=== PATIENT | male | born 1965 | race African-American/Black ===

== ENCOUNTER 2017-04-10 23:34 | Emergency (ER) | payer OTHER ==
[~2017-04-10] VITALS: Ht 170.2 cm; Wt 64.0 kg
[~2017-04-10 23:34] MED LIST: BACTROBAN22 G1 TOPIC; CLINDAMYCIN HC300 MG ORAL; DAPSONE MC; DAPSONE100 MG ORAL; FLUCONAZOLE200 MG ORAL; INTELENCE100 MG ORAL; ISENTRESS25 MG ORAL; ISENTRESS400 MG ORAL; LAMIVUDINE-ZID1 EACH PO; NORVIR100 MG ORAL; OXYCODON-ACETA1 EACH ORAL; OXYCONTIN10 MG ORAL; VIREAD PO; VIREAD300 MG ORAL
[2017-04-10 23:55] VITALS: BP 129/86
[2017-04-10] MEDS ORDERED: AMOXICILLIN500 MG ORAL (23:57)
[2017-04-10] MEDS ORDERED: PREDNISONE20 MG ORAL (23:57)
[2017-04-10] MEDS ORDERED: ALBUTEROL SULF8.5 GM INH (23:57)
[2017-04-11 00:06] VITALS: BP 129/86
--- NOTE | 2017-04-11 00:30 | Emergency Room Report ---
History of Present Illness General Chief Complaint: Upper Respiratory Illness Source: Patient Present Illness HPI 52-year-old male presents ED for evaluation of cough and fever. Started on Wednesday. Patient is afebrile in triage. States cough is productive with greenish phlegm. Denies chest pain or shortness of breath. Notes history of HIV. States he is compliant with his medications. States his CD4 count is high. Denies sick contacts or recent travel. No other aggravating relieving factors. Denies any other associated symptoms Allergies: Coded Allergies: SULFA (SULFONAMIDE ANTIBIOTICS) (Verified Adverse Reaction, Unknown, Itching, 05/10/13) per patient Patient History Past Medical History: asthma, HIV Past Surgical History: none Pertinent Family History: none Social History: Denies: smoking, alcohol use, drug use Immunizations: UTD Reviewed Nursing Documentation: PMH: Agreed, PSxH: Agreed Nursing Documentation-PMH Past Medical History: No History, Except For Hx Cardiac Problems: No - HIV POSITIVE Hx Hypertension: No Hx Pacemaker: No Hx Asthma: Yes - BRONCHIAL ASTHMA Hx COPD: No Hx Diabetes: No Hx Cancer: No Hx Gastrointestinal Problems: No Hx Dialysis: No Hx Neurological Problems: Yes Hx Cerebrovascular Accident: No Hx Seizures: No Hx Dizziness: Yes Hx Headaches: Yes Hx Weakness: Yes Review of Systems All Other Systems: negative except mentioned in HPI Physical Exam Vital Signs Date Time Temp Pulse Resp B/P (MAP) Pulse Ox O2 Delivery O2 Flow Rate FiO2 04/10/17 23:43 99.3 115 19 129/86 96 Room Air Sp02 EP Interpretation: reviewed, normal General Appearance: no apparent distress, alert, GCS 15, non-toxic Head: normocephalic, atraumatic Eyes: bilateral eye normal inspection, bilateral eye PERRL ENT: hearing grossly normal, normal pharynx, no angioedema, normal voice Neck: full range of motion, supple/symm/no masses Respiratory: chest non-tender, lungs clear, normal breath sounds, speaking full sentences Cardiovascular #1: regular rate, rhythm, no edema Cardiovascular #2: 2+ carotid (R), 2+ carotid (L), 2+ radial (R), 2+ radial (L) , 2+ dorsalis pedis (R), 2+ dorsalis pedis (L) Gastrointestinal: normal bowel sounds, non tender, soft, non-distended, no guarding, no rebound Rectal: deferred Genitourinary: normal inspection, no CVA tenderness Musculoskeletal: back normal, gait/station normal, normal range of motion, non- tender Neurologic: alert, oriented x3, responsive, motor strength/tone normal, sensory intact, speech normal Psychiatric: judgement/insight normal, memory normal, mood/affect normal, no suicidal/homicidal ideation Reflexes: 3+ bicep (R), 3+ bicep (L), 3+ tricep (R), 3+ tricep (L), 3+ knee (R) , 3+ knee (L) Skin: normal color, no rash, warm/dry, well hydrated Lymphatic: no adenopathy Medical Decision Making Diagnostic Impression: Primary Impression: Atypical pneumonia ER Course Hospital Course 52-year-old male presents to ED complaining of cough, fever Differential diagnoses include: URI, pharyngitis, otitis media, asthma Clinical course Patient placed on stretcher. After initial history, physical exam reveals a middle aged male in no acute distress. Bilateral TM unremarkable. No pharyngeal erythema. No tonsillar exudates. No lymphadenopathy. lungs clear. abdomen soft. given history of HIV we will treat as atypical pneumonia. I will prescribe abx Diagnosis - atypical pneumonia Stable and discharged home with Rx amoxicillin, prednisone, albuterol. Instructed to followup with PMD. Return to ED if symptoms recur or worsen Last Vital Signs Date Time Temp Pulse Resp B/P (MAP) Pulse Ox O2 Delivery O2 Flow Rate FiO2 04/11/17 00:06 99.3 115 19 129/86 96 Room Air Status: improved Disposition: HOME, SELF-CARE Condition: Stable Scripts Albuterol Sulfate* (ALBUTEROL SULFATE MDI*) 8.5 Gm Hfa.aer.ad 2 PUFF INH Q4H Y for cough/wheezing, #1 EA 0 Refills Prov: NAYELI WILLIAM M.D. 04/10/17 Prednisone* (PREDNISONE*) 20 Mg Tablet 40 MG ORAL DAILY, #10 TAB Prov: NAYELI WILLIAM M.D. 04/10/17 Amoxicillin* (AMOXIL*) 500 Mg Capsule 500 MG ORAL THREE TIMES A DAY, #21 CAP Prov: NAYELI WILLIAM M.D. 04/10/17 Referrals: LUIS SANDY (PCP) Patient Instructions: Community-Acquired Pneumonia, Adult, [id number] NAYELI WILLIAM M.D. Apr 11, 2017 00:30
== END 2017-04-11 00:06 | disposition home or self-care (01) ==
LOC: EMR 23:58
DX: J18.9 Pneumonia, unspecified organism (principal); Z21 Asymptomatic human immunodeficiency virus [HIV] infection status; Z88.2 Allergy status to sulfonamides; J45.909 Unspecified asthma, uncomplicated
CPT/HCPCS: 99284

== ENCOUNTER 2017-04-19 10:45 | Emergency (ER) | payer OTHER ==
[~2017-04-19] VITALS: Ht 170.2 cm; Wt 64.0 kg
[~2017-04-19 10:45] MED LIST changes: +ALBUTEROL SULF8.5 GM INH; +AMOXICILLIN500 MG ORAL; +PREDNISONE20 MG ORAL
[2017-04-19] MEDS ORDERED: Bicillin LA 2,400,000 units IM ONE (12:30)
--- NOTE | 2017-04-19 12:59 | Emergency Room Report ---
History of Present Illness General Chief Complaint: Skin Rash/Abscess Source: Patient Present Illness HPI [id number] with "rash" to buttocks. Associated with itch. unknown duration. Denies any pus drainage, fever or chills. Distant history of syphilis, but unknown if was treated. History of HIV on it retrovirals. Allergies: Coded Allergies: SULFA (SULFONAMIDE ANTIBIOTICS) (Verified Adverse Reaction, Unknown, Itching, 05/10/13) per patient Patient History Past Medical History: HIV Past Surgical History: none Pertinent Family History: none Social History: Denies: smoking, alcohol use, drug use Immunizations: UTD Reviewed Nursing Documentation: PMH: Agreed, PSxH: Agreed Nursing Documentation-PMH Hx Cardiac Problems: No - HIV POSITIVE Hx Hypertension: No Hx Pacemaker: No Hx Asthma: Yes - BRONCHIAL ASTHMA Hx COPD: No Hx Diabetes: No Hx Cancer: No Hx Gastrointestinal Problems: No Hx Dialysis: No Hx Neurological Problems: Yes Hx Cerebrovascular Accident: No Hx Seizures: No Hx Dizziness: Yes Hx Headaches: Yes Hx Weakness: Yes Review of Systems All Other Systems: negative except mentioned in HPI Physical Exam Vital Signs Date Time Temp Pulse Resp B/P (MAP) Pulse Ox O2 Delivery O2 Flow Rate FiO2 04/19/17 10:53 99.7 108 20 125/79 95 Room Air Sp02 EP Interpretation: reviewed, normal General Appearance: normal inspection, well appearing, no apparent distress, alert, GCS 15, non-toxic Head: normocephalic, atraumatic Eyes: bilateral eye PERRL, bilateral eye EOMI ENT: normal ENT inspection, hearing grossly normal, normal pharynx, no angioedema, normal voice, TMs + canals normal, uvula midline, moist mucus membranes Neck: normal inspection, full range of motion, supple, thyroid normal, no meningismus, no bony tend Respiratory: normal inspection, lungs clear, normal breath sounds, no rhonchi, no respiratory distress, no retraction, no accessory muscle use, no wheezing, speaking full sentences Cardiovascular #1: regular rate, rhythm, no edema, no JVD, normal capillary refill Gastrointestinal: normal inspection, normal bowel sounds, non tender, soft, no mass, no peritonitis, non-distended, no guarding, no hernia, no pulsatile mass Genitourinary: no CVA tenderness Musculoskeletal: normal inspection, back normal, normal range of motion, no calf tenderness, pelvis stable, Marcia's Sign negative Neurologic: normal inspection, alert, oriented x3, responsive, paper sorter III-XII nml as tested, motor strength/tone normal, cerebellar normal, normal gait, speech normal Psychiatric: normal inspection, judgement/insight normal, mood/affect normal, no suicidal/homicidal ideation, no delusions Skin: other - Multiple sotelo-white elevated lesions throughout bilateral buttocks. Not affecting perineum or anal verge. No pus drainage, no vesicles. No overlying erythema. Lymphatic: normal inspection, no adenopathy Medical Decision Making Diagnostic Impression: Primary Impression: Secondary syphilis ER Course patient with diffuse rash to buttocks, concern for secondary syphilis giving questionable treatment of primary syphilis years ago Also HIV infection RPR is pending Was treated empirically with penicillin 2.4 million units IM advise close primary care followup for infectious disease referral ER course: Patient has remained stable during ED stay. Disposition: Patient is to be discharged to home. Patient is instructed to follow up with their primary care doctor within 5 days. strict return precautions discussed with patient such as fever, chills, worsening/severe pain, nausea, vomiting, which may indicate severe illness. Patient verbalizes understanding and agrees with plan. Please note that this Emergency Department Report was dictated using [employer] job [employer] technology software, occasionally this can lead to erroneous entry secondary to interpretation by the dictation equipment Last Vital Signs Date Time Temp Pulse Resp B/P (MAP) Pulse Ox O2 Delivery O2 Flow Rate FiO2 04/19/17 10:53 99.7 108 20 125/79 95 Room Air Status: improved Disposition: HOME, SELF-CARE Condition: Improved Patient Instructions: Syphilis Additional Instructions: - Follow up with your primary doctor to refer you to Infectious Disease for followup MALLIKA BOWEN M.D. Apr 19, 2017 12:59
[2017-04-19 13:06] VITALS: BP 125/79
== END 2017-04-19 13:08 | disposition home or self-care (01) ==
LOC: EMR 11:44
DX: A51.49 Other secondary syphilitic conditions (principal); J45.909 Unspecified asthma, uncomplicated
CPT/HCPCS: 86592; 96372; 99283

== ENCOUNTER 2017-04-21 12:44 | Outpatient (CLI) | payer OTHER ==
--- NOTE | 2017-04-21 15:20 | Diagnostic Imaging Report ---
Indication: Cough Comparison: 06/24/2014 2 views of the chest obtained. Reticular interstitial opacities are demonstrated at both lung bases. Heart size is normal. Bones are osteopenic. There may be a small left pleural effusion. IMPRESSION: Basilar interstitial disease. Pneumonia is possible. Please correlate clinically. However, findings appear similar on the prior occasion in 2014
== END 2017-04-21 14:44 | disposition home or self-care (01) ==
LOC: RAD 12:44
DX: R05 Cough (principal); M85.80 Other specified disorders of bone density and structure, unspecified site
CPT/HCPCS: 71046

== ENCOUNTER 2017-05-05 12:12 | Outpatient (CLI) | payer OTHER ==
--- NOTE | 2017-05-05 14:16 | Diagnostic Imaging Report ---
Indication: Cough Technique: 2 views of the chest Comparison: 04/21/2017 Findings: Interim partial improvement the persistence of infiltrates in the right middle lobe and left lower lobe. Previously demonstrated left pleural effusion is no longer evident Impression: Improved but persistent right middle lobe and left lower lobe infiltrates, since prior study 04/21/2017
== END 2017-05-05 14:12 | disposition home or self-care (01) ==
LOC: RAD 12:12
DX: R05 Cough (principal)
CPT/HCPCS: 71046

== ENCOUNTER 2017-05-20 11:41 | Outpatient (CLI) | payer OTHER ==
--- NOTE | 2017-05-20 13:03 | Diagnostic Imaging Report ---
Indication: Cough Comparison: 05/05/2017 2 views of the chest obtained. No definite infiltrate or pulmonary vascular congestion identified. The heart is enlarged. The aorta is mildly enlarged consistent with atherosclerotic vascular disease. The bones are osteopenic. Impression: No acute disease
== END 2017-05-20 13:41 | disposition home or self-care (01) ==
LOC: RAD 11:41
DX: J18.9 Pneumonia, unspecified organism (principal); M85.88 Other specified disorders of bone density and structure, other site; I51.7 Cardiomegaly
CPT/HCPCS: 71046